=== PATIENT | male | born 1995 ===

== ENCOUNTER → 2018-07-22 | Outpatient (CLI) | payer BC ==
[~2018-07-22] MED LIST: ONDA4TAB97 PO
--- NOTE | 2018-07-22 10:27 | RADIOLOGY IMAGING REPORT ---
FACILITY: [facility] PATIENT NAME: Denny Witt : 1995 MR: [id number] V: [id number] EXAM DATE: ORDERING PHYSICIAN: CECY RUIZ TECHNOLOGIST: Location: [facility] Patient: Denny Witt : 1995 Visit/Account:[id number] Date of Sevice: 07/22/2018 TESTICULAR HISTORY: Bilateral orchialgia ADDITIONAL HISTORY: None. COMPARISON: None. FINDINGS: Testes: Unremarkable. Symmetric and unremarkable blood flow documented by color and Duplex Doppler ultrasound. Epididymides: In the right epididymal head there is a small hypoechoic nodule which is avascular and measures 5 x 3 x 3 mm. Left epididymis unremarkable. Blood flow is unremarkable in each epididymis by color Doppler ultrasound. No evidence of hype remia Hydrocele: None. Varicocele: None. IMPRESSION: Small hypoechoic nodule right epididymal head is nonspecific but nonspecific but almost certainly rep resents a small spermatocele. Exam otherwise normal. Report Dictated By: Silvio Gregory MD at 07/22/2018 10:19 AM Report E-Signed By: Silvio Gregory MD at 07/22/2018 10:22 AM WSN:[id number]
== END ==
LOC: US 01:02
PROVIDERS: ATTEND Urology
DX: N43.40 Spermatocele of epididymis, unspecified (principal)
CPT/HCPCS: 76870